=== PATIENT | female | born 1980 | race Caucasian/White ===

== ENCOUNTER 2021-06-14 15:44 | Emergency (ER) | payer MEDICAID, SELFPAY ==
[2021-06-14 15:59] VITALS: BP 142/96; PULSE 74; RESP 18; TEMP 36.7; O2SAT 98
--- NOTE | 2021-06-14 16:45 | DI.RAD_ITS ---
Exam(s) XR FOOT LT COMPLETE EXAM: XR FOOT LT COMPLETE CLINICAL HISTORY: fall/ distal foot pain. TECHNIQUE: 2D digital imaging was performed of the left foot. Three images were obtained. AP, obli que and lateral views were obtained. COMPARISON: No exams were available for comparison FINDINGS: BONES: No acute fracture is present. No bony destructive lesion is seen. Sideplate and screws are see n in the distal fibula. JOINTS: No dislocation present. SOFT TISSUE: Soft tissue swelling about the ankle. IMPRESSION: No acute fracture or dislocation. DATA REPOSITORY: RADIATION DOSE DELIVERED:
--- NOTE | 2021-06-14 16:45 | DI.RAD_ITS ---
Exam(s) XR ANKLE LT COMPLETE EXAM: XR ANKLE LT COMPLETE CLINICAL HISTORY: fall distyal tib pain TECHNIQUE: 2D digital imaging was performed of the left ankle. Three images were obtained. AP, lat eral and oblique views were obtained. COMPARISON: No exams were available for comparison FINDINGS: BONES: No acute fracture is present. No bony destructive lesion is seen. There is a sideplate and scr ews in the distal fibula. JOINTS:The ankle mortise is normally aligned. Old well corticated osseous fragments are seen adjacent to the medial malleolus which may represent old fracture fragments. SOFT TISSUE: Soft tissue swelling around the ankle particularly laterally. IMPRESSION: No evidence of an acute fracture or dislocation. DATA REPOSITORY: RADIATION DOSE DELIVERED:
[2021-06-14 16:50] VITALS: BP 130/78; PULSE 67; RESP 18; TEMP 36.6; O2SAT 97
--- NOTE | 2021-06-14 17:30 | DI.VRAD_ITS ---
PROCEDURE INFORMATION: Exam: XR Left Ankle Exam date and time: 06/14/2021 4:52 PM Age: 40 years old Clinical indication: Other: Fall, distal tib pain TECHNIQUE: Imaging protocol: XR Left ankle. Views: 3 or more views. COMPARISON: No relevant prior studies available. FINDINGS: Bones/joints: Long plate and screws in the distal fibula. Degenerative changes in the medial and lateral malleolus. Old avulsion fracture adjacent to the medial malleolus. There is no evidence of acute fracture.There is no evidence of malalignment or dislocation. Soft tissues: Normal. IMPRESSION: There is no evidence of acute fracture.There is no evidence of malalignment or dislocation. Dictated and Authenticated by: Nikko Khan MD. Ordering:ELISSA Gomez MD
--- NOTE | 2021-06-14 17:30 | DI.VRAD_ITS ---
PROCEDURE INFORMATION: Exam: XR Left Foot Exam date and time: 06/14/2021 4:52 PM Age: 40 years old Clinical indication: Other: Fall distal foot pain TECHNIQUE: Imaging protocol: XR Left foot. Views: 3 or more views. COMPARISON: CR XR ANKLE LT COMPLETE 06/14/2021 5:19 PM FINDINGS: Bones/joints: Plate and screws in the distal fibula. There is no evidence of acute fracture.There is no evidence of malalignment or dislocation. Lucency through the dorsal aspect of the navicular consistent with chronic avulsion fracture Soft tissues: Normal. IMPRESSION: There is no evidence of acute fracture.There is no evidence of malalignment or dislocation. Dictated and Authenticated by: Nikko Khan MD. Ordering:ELISSA Gomez MD
--- NOTE | 2021-06-14 17:34 | ED.GENADUL_ITS ---
Discharge Plan Disposition Patient Disposition: HOME Condition: Stable Discharge Details Clinical Impression: Left ankle sprain Primary Care Provider: Kamar Wilson ED Provider: Jason Abdul Discharge Instructions Instructions: Ankle Sprain (ED), R.I.C.E. Treatment (ED) Additional Instructions: You may continue to take [id number] pain medication as needed and also rest, ice, elevate and keep the brace on. If not improving over the next 1 to 2 weeks please follow-up with orthopedist for reassessment and further treatment as needed. Discharge Data Discharge Date/Time-TO BE ENTERED AT DEPARTURE: 06/14/21 18:08 Medical Decision Making Patient presenting to the emergency department for chief complaint of left ankle injury. She stepped out of a tow truck and missed the step causing her to have an inversion injury of the left ankle. She denies complete fall and states that she caught herself but has significant pain to the left foot and ankle. Patient does report previous injury with OR repair. Patient denies any other injury or trauma. Physical exam shows lateral left ankle tenderness with swelling along with foot tenderness. Plan to do radiological imaging to rule out acute fracture. Review of radiological imaging shows no signs of acute fracture or dislocation within the foot or ankle. Patient placed in a short walking boot and instructed on conservative management along with return and follow-up precautions. After discussion of diagnosis and plan of care patient has no further needs, questions, or concerns and states clear understanding to return to the emergency department for any worsening symptoms. HPI General Mode of arrival: wheelchair . Date/Time Provider Initiated Documentation: 06/14/21 15:46 . Limitations to Documentation: no limitations . Information obtained by: patient . History of Present Illness 40 year old F presents to the emergency department with the chief complaint of left ankle injury, described as moderate, with intensity rated at 8. Quality is described as aching and sharp, and is localized to the left and lower extremity. Patient reports no radiation. Patient started experiencing this hour(s) (1) and it has been constant. Immobilization improves symptom(s), Movement worsens symptoms . Patient notes no other symptoms.. Patient did receive the following treatments prior to arrival, NSAID General Stated Complaint: Orthopedic CRISTIAN: 4 Review of Systems ENT Ears, Nose, Mouth, and Throat: Denies other (denies head trauma) Cardiovascular Cardiovascular: Denies chest pain and Denies syncope Gastrointestinal Gastrointestinal: Denies abdominal pain Musculoskeletal Musculoskeletal: Reports as per HPI, Denies numbness and Denies tingling Integumentary/Breasts Skin/Breast: Denies rash, Denies sores and Denies wounds Neurologic Neurologic: Denies syncope, Denies numbness and Denies tingling PFSH All Active Problems Left ankle sprain (Acute) Social History Smoking/Tobacco Use Status: Never Smoking risk assessment performed?: Yes Alcohol Intake: never Drug use: Never Do you feel safe at home: Yes Do you feel safe in your relationship?: Yes Exam Const General: cooperative, no acute distress and not ill appearing Orientation: alert, awake and oriented x3 Resp Effort & Inspection: normal respiratory effort, able to speak in complete sentences and no respiratory distress Cardio Rate: regular rate Rhythm: regular rhythm Pulses: posterior tibial pulses present and dorsalis pedis present Skin General skin exam: no rashes or lesions noted Neuro General: patient alert, patient awake, patient oriented x3, moves all extremities and no focal motor deficits Sensory Exam: no sensory deficits noted Extrem General: normal exam except as noted Left lower extremity: ankle Details: tenderness Location: of the lateral malleolus, anterolaterally and anteriorly, swelling Details: laterally and abnormal ROM Details: pain with active ROM and pain with passive ROM; no abrasions and foot Details: normal capillary refill and tenderness Location: of the dorsal foot, of the lateral foot and of the mid foot Course Vital Signs Vital signs: Vital Signs Temperature 36.7 C 06/14/21 15:59 Pulse 74 06/14/21 15:59 Respiratory Rate 18 06/14/21 15:59 Blood Pressure 142/96 H 06/14/21 15:59 Pulse Oximetry 98 06/14/21 15:59 Temperature 36.6 C 06/14/21 16:50 Temperature Source Tympanic 06/14/21 15:59 Pulse 67 06/14/21 16:50 Respiratory Rate 18 06/14/21 16:50 Respiratory Effort 06/14/21 16:01 Blood Pressure 130/78 06/14/21 16:50 Blood Pressure Position Supine 06/14/21 15:59 Pulse Oximetry 97 06/14/21 16:50 Oxygen Delivery Method Room Air 06/14/21 16:50 Oxygen Flow Rate 0 06/14/21 16:50 Pain Level 8 06/14/21 15:59 Lab/Test Results Lab/Test Results: POC- Test(urine) Negative
[2021-06-14 17:57] VITALS: BP 130/78; PULSE 67; RESP 18; TEMP 36.6; O2SAT 97
== END 2021-06-14 18:08 | disposition home or self-care (01) ==
PROVIDERS: Emergency Provider Nurse Practitioner Family; PCP Nurse Practitioner Family
DX: S93.492A Sprain of other ligament of left ankle, initial encounter (principal); W10.8XXA Fall (on) (from) other stairs and steps, initial encounter
CPT/HCPCS: 29515; 81025; 99284; 73610; 73630; 99283

== ENCOUNTER 2021-08-29 12:24 | Emergency (ER) | payer MEDICAID, SELFPAY ==
[2021-08-29 12:28] VITALS: BP 140/86; PULSE 80; RESP 16; TEMP 36.3; O2SAT 98
--- NOTE | 2021-08-29 13:05 | ED.GENADUL_ITS ---
Discharge Plan Disposition Patient Disposition: HOME Condition: Stable Discharge Details Clinical Impression: Dental infection Primary Care Provider: Kamar Wilson ED Provider: Columba Hadley Home Meds and New Rx's Prescriptions: New clindamycin HCl 150 mg capsule 450 mg PO TID 7 Days Qty: 63 0RF ketorolac 10 mg tablet 10 mg PO Q8H PRN (Reason: pain) 2 Days Qty: 6 0RF Continued acetaminophen 500 mg Tablet 1,000 mg PO PRN PRN0RF ibuprofen 200 mg Capsule 800 mg PO PRN [id number] Discharge Instructions Instructions: Dental Abscess (ED) Additional Instructions: Your exam appears consistent with a developing dental infection but there is no obvious drainable dental abscess at this time. You are being sent home with a prescription for the antibiotic clindamycin and the pain medication Toradol to take as needed and directed for pain. Do not take NSAIDs while you are taking Toradol. You can continue to take Tylenol as needed and directed for pain. Call your dentist tomorrow to schedule follow-up appointment for reevaluation. Return immediately to the emergency department if you develop any worsening or new concerning symptoms. Discharge Data Discharge Date/Time-TO BE ENTERED AT DEPARTURE: 08/29/21 13:40 Discharge Physician: Columba Hadley Medical Decision Making 41-year-old female presents with left lower dental pain for the past few days. Vitals within normal limits. Patient appears comfortable and nontoxic. Speaki ng in full sentences. No drooling, trismus or submandibular swelling. She has extensive dental caries and multiple necrotic teeth. Tooth where there is area of pain and swelling is significantly decayed there is no obvious abscess. She has minimal left-sided facial swelling. Patient states she has a history of wheezing with penicillin or erythromycin. She states she has not taken clindamycin in the past. She was given a dose of clindamycin here. 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 She was given 2 days of Toradol but advised to not take along with NSAIDs. Advised to call her dentist tomorrow for follow-up. Usual and customary return precautions given prior to discharge. Medical Records Medical records reviewed: Yes I reviewed the patient's medical records. HPI General Mode of arrival: ambulatory . Date/Time Provider Initiated Documentation: 08/29/21 12:44 . Limitations to Documentation: no limitations . Information obtained by: patient . HPI Narrative: Patient is a 41-year-old female who presents with left lower dental pain for the past few days. Patient states she has areas of dental decay for which she has seen her dentist recently. She denies any new specific injury. She states she had a Keflex leftover and took 1 dose today. She states she noted some pain in the left side of her throat with swallowing. She denies any fever. Related Data Home Medications Medication Instructions Recorded Confirmed acetaminophen 500 mg tablet 1,000 mg PO PRN PRN 08/29/21 08/29/21 clindamycin HCl 150 mg capsule 450 mg PO TID 7 Days #63 cap 08/29/21 ibuprofen 200 mg capsule 800 mg PO PRN PRN 08/29/21 08/29/21 ketorolac 10 mg tablet 10 mg PO Q8H PRN 2 Days #6 tab 08/29/21 Previous Rx's Medication Instructions Recorded clindamycin HCl 150 mg capsule 450 mg PO TID 7 Days #63 cap 08/29/21 ketorolac 10 mg tablet 10 mg PO Q8H PRN 2 Days #6 tab 08/29/21 Allergies Allergy/AdvReac Type Severity Reaction Status Date / Time amoxicillin Allergy Unverified 08/29/21 12:32 erythromycin base Allergy Unverified 08/29/21 12:32 Penicillins Allergy Unverified 08/29/21 12:33 Sulfa (Sulfonamide Allergy Unverified 08/29/21 12:33 Antibiotics) General Stated Complaint: DentalOral CRISTIAN: 4 Review of Systems All systems reviewed & are unremarkable except as noted in HPI and below Constitutional Constitutional: Reports as per HPI, Denies chills and Denies fever(s) Eyes Eyes: Denies blurry vision ENT Ears, Nose, Mouth, and Throat: Reports dental pain, Denies dizziness, Denies sore throat and Denies throat swelling Cardiovascular Cardiovascular: Denies chest pain and Denies dyspnea Respiratory Respiratory: Denies cough and Denies dyspnea Gastrointestinal Gastrointestinal: Denies abdominal pain, Denies diarrhea and Denies vomiting Genitourinary Genitourinary: Denies hematuria and Denies dysuria Musculoskeletal Musculoskeletal: Denies back pain and Denies numbness Integumentary/Breasts Skin/Breast: Denies lesions and Denies rash Neurologic Neurologic: Denies dizziness, Denies localized weakness and Denies numbness Allergic/Immunologic Allergic/Immunologic: Denies throat swelling PFSH All Active Problems (Updated 08/29/21 @ 14:54 by Columba Hadley DO) Dental infection (Acute) Medical History (Updated 08/29/21 @ 14:54 by Columba Hadley DO) No significant past medical history Surgical History (Updated 08/29/21 @ 14:54 by Columba Hadley DO) No significant past surgical history Social History Smoking/Tobacco Use Status: Never Smoking risk assessment performed?: Yes Alcohol Intake: never Drug use: Never Do you feel safe at home: Yes Do you feel safe in your relationship?: Yes Exam Const General: cooperative, healthy appearing and no acute distress Orientation: alert, awake and oriented x3 HENMT Head: normal to inspection Ears: hearing grossly normal bilaterally, external ears normal and TM's normal bilaterally General nose exam: external nose normal Face images: 1. Very minimal swelling noted to left lateral facial cheek/mandible. There is no erythema, ecchymosis, rash, lesions or crepitus. Mouth: oral mucosae normal, no drooling and no trismus Teeth image: 1. Most of tooth missing. Base of tooth remains and black and brown in color. There is surrounding mucosal edema but no obvious area of fluctuance, drainage or bleeding. Throat: posterior oropharynx normal Eyes General: appearance normal, both eyes and all related structures Neck Neck: normal visual inspection, no lymphadenopathy, no meningeal signs, trachea midline, supple, no anterior neck swelling and No submandibular swelling Resp Effort & Inspection: normal respiratory effort and able to speak in complete sentences Cardio Rate: regular rate Skin General skin exam: no rashes or lesions noted Neuro General: patient alert, patient awake and patient oriented x3 Motor: muscle tone normal throughout Extrem General: normal to inspection and full ROM Psych Appearance: grossly normal Affect: normal affect Course Vital Signs Vital signs: Vital Signs Temperature 97.3 F L 08/29/21 12:28 Pulse 80 08/29/21 12:28 Respiratory Rate 16 08/29/21 12:28 Blood Pressure 140/86 08/29/21 12:28 Pulse Oximetry 98 08/29/21 12:28 Temperature 97.3 F L 08/29/21 12:28 Temperature Source Temporal Artery Scan 08/29/21 12:28 Pulse 80 08/29/21 12:28 Respiratory Rate 16 08/29/21 12:28 Respiratory Effort 08/29/21 12:38 Blood Pressure 140/86 08/29/21 12:28 Blood Pressure Position Sitting 08/29/21 12:28 Pulse Oximetry 98 08/29/21 12:28 Oxygen Delivery Method Room Air 08/29/21 12:28 Oxygen Flow Rate 0 08/29/21 12:28 Pain Level 7 08/29/21 12:28
[2021-08-29] MEDS: Clindamycin 150 MG CAP 450 MG PO (13:37)
== END 2021-08-29 13:40 | disposition home or self-care (01) ==
PROVIDERS: Emergency Provider Physician Assistant; PCP Nurse Practitioner Family
DX: K04.7 Periapical abscess without sinus (principal)
CPT/HCPCS: 81025; 99283

== ENCOUNTER 2022-04-11 22:03 | Emergency (ER) | payer MEDICAID, SELFPAY ==
[2022-04-11 22:10] VITALS: BP 125/91; PULSE 95; RESP 20; TEMP 37.1; O2SAT 98
--- NOTE | 2022-04-11 22:15 | RT.EKG_ITS ---
APPROVED REPORT Exam: Resting ECG Reason for Exam: chest pain Patient Location: E HR:80 bpm ECG Measurements Heart Rate 80 AXIS RI 137 P 13 QRSd 83 QRS 9 QT 378 T 46 QTc 437 Conclusion Sinus rhythm...normal P axis, V-rate 60- 99 Nonspecific T abnormalities, anterior leads...T <-0.10mV, V2-V4 Physician: no stemi, inverted t wave in V3
--- NOTE | 2022-04-11 23:15 | DI.CT_ITS ---
Exam(s) CT THORAX ABDOMEN CTA EXAM: CT THORAX ABDOMEN CTA CLINICAL HISTORY: back/scapula pain, ruq pain, eval dissection/GB. TECHNIQUE: Imaging Protocol: Axial CT angiography was performed with multi-slice acquisition and m ulti-planar and/or 3D reconstructions. CONTRAST MATERIAL: Intravenous: Omnipaque 350 contrast volume:100 mL Oral: No COMPARISON: No exams were available for comparison FINDINGS: CHEST: Tracheobronchial tree: Patent where visualized. Pulmonary parenchyma: No consolidation or dominant measurable mass. No architectural distortion. Ther e is a calcified granuloma in the right upper lobe. Pulmonary Arteries: No evidence of filling defect to suggest pulmonary emboli. Mediastinum and Stephie: No dominant adenopathy or fluid collection. There is a small hiatal hernia. Th e esophagus is otherwise unremarkable. Visualized thyroid: Unremarkable. Pleura: No effusion or pneumothorax. Heart: The heart is not dilated. No coronary artery calcifications are seen. No pericardial effusion. Aorta: Thoracic aorta non-dilated. No evidence of dissection or aneurysm. Soft Tissues: Unremarkable. Bones: Within normal limits for the patient's age. ABDOMEN: Abdomen: Celiac axis/mesenteric arteries: No evidence of occlusion or significant stenosis. Renal Arteries: No evidence of occlusion or significant stenosis. There is a single renal artery per fusing each kidney. Aorta: No evidence of occlusion or significant stenosis. No aneurysm or dissection. Proximal Common iliac Arteries: No evidence of occlusion or significant stenosis. ABDOMEN: Liver: There does appear to be decreased attenuation of the liver suggesting fatty infiltration. No measurable mass. The liver measures 20 cm long. Gallbladder and Biliary Tract: No radiodense calculus or dilation. Pancreas: Normal density, no abnormal calcifications or inflammatory process. Spleen: Normal. Adrenals: No masses seen. Kidneys: Normal size, contour and axis. No radiodense stones or obstructive uropathy. No masses seen. Mild bilateral renal cortical scarring. Bowel: No obstruction or bowel wall thickening. Peritoneal Cavity: No ascites, collection or mesenteric inflammatory response. No free air. Lymph Nodes: Within normal limits. Bones: Within normal limits for the patient's age. Soft Tissues: Unremarkable. IMPRESSION: 1. No evidence of pulmonary embolism, thoracic aortic dissection or aneurysm. 2. No acute pulmonary process. 3. No acute abdominal process. Unremarkable gallbladder. No biliary ductal dilatation. RADIATION DOSE DELIVERED: 849.87mGy.cm Total DLP DATA REPOSITORY: All CT scans at this facility are submitted to the National Radiology Data Registry (NRDR) Dose Index Registry (DIR) with the [employer] (A[employer]). RADIATION OPTIMIZATION: All CT scans at this facility use at least one of these dose optimization te chniques: automated exposure control; mA and/or kV adjustment per patient size (includes targeted exa ms where dose is matched to clinical indication); or iterative reconstruction.
--- NOTE | 2022-04-11 23:57 | W.ED.GENAD ---
Discharge Plan Disposition Patient Disposition: Home Condition: Good Discharge Details Clinical Impression: Discomfort of back Primary Care Provider: Kamar Wilson ED Provider: Freeman Doyle Home Meds and New Rx's Prescriptions: New pantoprazole [Protonix] 40 mg tablet,delayed release (DR/EC) 40 mg PO DAILY Qty: 60 0RF No Action acetaminophen 500 mg Tablet 1,000 mg PO PRN PRN ibuprofen 200 mg Capsule 800 mg PO PRN PRN Discharge Instructions Instructions: Biliary Colic (ED), Esophagitis (ED) Additional Instructions: At this time your work-up has returned reassuring. There is no evidence of cardiac disease, significant lung or chest abnormality. I am concerned that you may have irritation in your esophagus or a spasm of your gallbladder causing the pain. Please avoid any spicy foods, greasy foods, or fatty foods. Please take the Protonix as directed. It is been sent to your pharmacy on file. Please follow-up closely with your primary care provider for reassessment. If you notice any worsening of your symptoms, or any new symptoms such as vomiting, diarrhea, fever, chills, shortness of breath, chest pain, numbness, weakness, or fainting , please return immediately to the emergency department for reevaluation. Please follow up with your primary care provider as soon as possible for reassessment and reevaluation. As always, it was a pleasure participating in your medical care today. Referrals: Kamar Wilson [Primary Care Provider] - Discharge Data Discharge Date/Time-TO BE ENTERED AT DEPARTURE: 04/12/22 01:58 Medical Decision Making 41-year-old female with no significant past medical history aside for hypertension who presents today for evaluation of back pain. Patient states that for the last 4 weeks she has had a mild pain in her upper back between her shoulder blades and a deep-seated area. Pain seems to be worse at night before she goes to bed but not before she lays down. No exertional component. She does admit to some burning sensation in her chest occasionally but feels that this is different but potentially related. She denies any vomiting or diarrhea currently but did have a few episodes over the last few days. She denies any tearing or ripping sensation in her chest. No history for herself or her family of MT/aneurysm/dissection/PE. She denies any food related component. She does admit to some mild epigastric discomfort and right upper quadrant discomfort as well. No other complaints at this time. She has taken Tylenol and Motrin over the last month but this has not changed her symptoms. Physical exam demonstrates wide right upper quadrant tenderness, no guarding or rebound. No reproducible pain for the back. EKG shows no STEMI. Symptoms inconsistent with ACS, however differential does include cholecystitis, biliary colic, osseous or thoracic vascular abnormality. We will evaluate for these concerning etiologies, monitor closely and reassess. 1:41 AM Laboratory work-up is returned, no significant abnormalities. Electrolytes stable, renal function good, troponin and lipase normal. EKG normal. Patient feels well and would like to go home. Review of the CT scan does seem to show a small versus slightly contracted gallbladder. Symptoms may certainly be related to potential biliary colic. Recommend avoidance of spicy, fatty, greasy foods. Patient symptoms may be related to mild esophagitis as well. Will recommend antacid medication for home use, as well as close PCP follow-up for potential discussion of EGD on an outpatient basis. Patient stable for discharge. Symptoms inconsistent with PE, dissection, tumor or mass. Discussed reflux which to return. I have extensively reviewed the treatment plan and discharge instructions with the patient and their family. I have addressed all patient concerns at this time. The patient and family was made aware of what symptoms to monitor for that would warrant a return to the emergency department. Discussed the plan with the patient and family, they demonstrate verbal understanding and agreement with our assessment and plan at this time. The documentation in this chart was dictated using [employer] dictation software. Please excuse any dictation errors. FINDINGS: VASCULATURE: Pulmonary arteries: Mildly enlarged main pulmonary artery No pulmonary emboli. Aorta: No aortic aneurysm. No aortic dissection. Celiac trunk and mesenteric arteries: No occlusion or significant stenosis. Renal arteries: No occlusion or significant stenosis. CHEST: Lungs: Calcified granuloma right upper lobe No consolidation. No masses. Pleural spaces: Unremarkable. No pneumothorax. No pleural effusion. Heart: Unremarkable. No cardiomegaly. No pericardial effusion. Small hiatal hernia ABDOMEN AND PELVIS: Liver: No mass. Fatty infiltration and mild hepatomegaly Gallbladder and bile ducts: Unremarkable. No calcified stones. No ductal dilation. Pancreas: Unremarkable. No mass. No ductal dilation. Spleen: Unremarkable. No splenomegaly. Adrenal glands: Unremarkable. No mass. Kidneys and ureters: Unremarkable. No solid mass. No hydronephrosis. Stomach and bowel: Unremarkable. No obstruction. No mucosal thickening. Intraperitoneal space: Unremarkable. No free air. No significant fluid collection. Lymph nodes: Unremarkable. No enlarged lymph nodes. Bones/joints: Unremarkable. No acute fracture. Soft tissues: Unremarkable. IMPRESSION: No evidence for pulmonary emboli or aortic dissection Enlarged main pulmonary artery which may be related to pulmonary arterial hypertension versus pulmonic stenosis Thank you for allowing us to participate in the care of your patient. Dictated and Authenticated by: Andrew Santizo MD 04/12/2022 1:13 AM Eastern Time ([place] & [place]) Sign Out No HPI General Date/Time Provider Initiated Documentation: 04/11/22 23:17. HPI Narrative: 41-year-old female with no significant past medical history aside for hypertension who presents today for evaluation of back pain. Patient states that for the last 4 weeks she has had a mild pain in her upper back between her shoulder blades and a deep-seated area. Pain seems to be worse at night before she goes to bed but not before she lays down. No exertional component. She does admit to some burning sensation in her chest occasionally but feels that this is different but potentially related. She denies any vomiting or diarrhea currently but did have a few episodes over the last few days. She denies any tearing or ripping sensation in her chest. No history for herself or her family of MT/aneurysm/dissection/PE. She denies any food related component. She does admit to some mild epigastric discomfort and right upper quadrant discomfort as well. No other complaints at this time. She has taken Tylenol and Motrin over the last month but this has not changed her symptoms. Related Data Home Medications Medication Instructions Recorded Confirmed acetaminophen 500 mg tablet 1,000 mg PO PRN PRN 08/29/21 04/11/22 ibuprofen 200 mg capsule 800 mg PO PRN PRN 08/29/21 04/11/22 pantoprazole 40 mg tablet,delayed 40 mg PO DAILY #60 tabs 04/12/22 release (Protonix) Previous Rx's Medication Instructions Recorded pantoprazole 40 mg tablet,delayed 40 mg PO DAILY #60 tabs 04/12/22 release (Protonix) Allergies Allergy/AdvReac Type Severity Reaction Status Date / Time amoxicillin Allergy Unverified 04/11/22 22:19 erythromycin base Allergy Unverified 04/11/22 22:19 Penicillins Allergy Unverified 04/11/22 22:19 Sulfa (Sulfonamide Allergy Unverified 04/11/22 22:19 Antibiotics) General Stated Complaint: Nk/Back Pain CRISTIAN: 4 Review of Systems All systems reviewed & are unremarkable except as noted in HPI and below PFSH All Active Problems (Updated 04/12/22 @ 01:45 by Freeman Dyole DO) Discomfort of back (Acute) Medical History No significant past medical history Surgical History No significant past surgical history Social History Smoking/Tobacco Use Status: Never Smoking risk assessment performed?: Yes Alcohol Intake: never Drug use: Never Do you feel safe at home: Yes Do you feel safe in your relationship?: Yes Exam Narrative Exam Narrative: 1.Const: Well-nourished, Well-developed, appearing stated age 2.Eyes: PERRL, no conjunctival injection, and symmetrical lids. 3.ENT: Atraumatic external nose and ears. Moist MM. Neck: Symmetric, trachea midline, No thyromegaly. 4.CVS: +S1/S2, No murmurs or gallops. Peripheral pulses 2+ and equal in all extremities. Brisk capillary refill in all extremities. 5.RESP: Unlabored respiratory effort. Clear to auscultation bilaterally. No wheezes rales or rhonchi 6.GI: Soft, nondistended, no guarding or rebound. Mild right upper quadrant tenderness on palpation. No pain to McBurney's point, negative Arboleda sign but certainly has present tenderness in that area. 7.MSK: Normocephalic/Atraumatic, Extremities w/o deformity or ttp No cyanosis or clubbing, Normal movement of all extremities, no reproducible spinal tenderness. No reproducible back tenderness. The focality of the pain appears to be around T3, however it is deep satted, and not made worse with palpation or midline pushing. 8.Skin: Warm, Dry. No rashes or lesions. 9.Neuro: software writer II-XII grossly intact. Sensation grossly intact, no focal neurologic deficits. 10.Psych: (AAO) x3. Appropriate mood and affect Course Vital Signs Vital signs: Vital Signs Temperature 37.1 C 04/11/22 22:10 Pulse 95 H 04/11/22 22:10 Respiratory Rate 20 04/11/22 22:10 Blood Pressure 125/91 H 04/11/22 22:10 Pulse Oximetry 98 04/11/22 22:10 Temperature 37.1 C 04/11/22 22:10 Temperature Source Temporal Artery Scan 04/11/22 22:10 Pulse 95 H 04/11/22 22:10 Respiratory Rate 20 04/11/22 22:10 Respiratory Effort 04/11/22 22:27 Blood Pressure 125/91 H 04/11/22 22:10 Blood Pressure Position Sitting 04/11/22 22:10 Pulse Oximetry 98 04/11/22 22:10 Oxygen Delivery Method Room Air 04/11/22 22:10 Oxygen Flow Rate 0 04/11/22 22:10 Pain Level 6 04/11/22 22:10
[2022-04-12] LABS: Abs Immature Grans 0.06 10^3/uL (0.0-0.06); Absolute Basophil Count 0.05 10^3/uL (0.0-0.2); Absolute Neutrophil Count 7.55 10^3/uL (1.2-6.7); Basophils % 0.4; Eosinophils % 5.9; HCT 36.3 % (36.0-46.0); HGB 11.1 g/dL (11.2-15.7); Immature Grans % 0.5; Lymphocytes % 23.6; MCH 23.4 pg (27.0-33.0); MCHC 30.6 % (32.0-36.0); MCV 76 fL (80-95); MPV 11.3 fL (8.0-11.0); Monocytes % 5.9; Neutrophils % 63.7; Platelet Count 293 10^3/uL (130-400); RBC 4.75 10^6/uL (3.93-5.22); RDW-SD 47.2 fL; WBC 11.85 10^3/uL (4.4-10.8)
[2022-04-12] MEDS: Omnipaque 350 MG/ML 100 ML BTL IJ (00:01)
[2022-04-12] MEDS: Ketorolac 15 MG/ML VIAL IVP (00:02)
[2022-04-12 00:18] LABS: ALT 16 U/L (14-59); AST 19 U/L (15-37); Albumin 3.3 g/dL (3.4-5.0); Alkaline Phosphatase 110 U/L (46-116); Anion Gap 8.8 mmol/L (3-11); BUN 20 mg/dL (7-18); Bilirubin, Total 0.3 mg/dL (0.2-1.0); CO2 27.2 mmol/L (21.0-32.0); Calcium 9.4 mg/dL (8.5-10.1); Chloride 103 mmol/L (98-107); Estimated GFR 72.13 (mL/min/1.73m2); Glucose 100 mg/dL (74-106); Lipase 119 U/L (73-393); Potassium 4.2 mmol/L (3.5-5.1); Sodium 139 mmol/L (136-145); Troponin I < 50 ng/L (<or=60)
[2022-04-12] MEDS: Normal Saline Flush 10 ML SYR IVP (00:25)
[2022-04-12] MEDS: Normal Saline - Diluent 50 ML VIAL IJ (00:25)
--- NOTE | 2022-04-12 01:14 | DI.VRAD_ITS ---
PROCEDURE INFORMATION: Exam: CTA Chest With Contrast CTA Abdomen With Contrast Exam date and time: 04/12/2022 12:11 AM Age: 41 years old Clinical indication: Abdominal pain; Localized; Right upper quadrant (ruq); Patient HX: Back, scapula pain, ruq pain, eval dissection, gb TECHNIQUE: Imaging protocol: Computed tomographic angiography of the chest with contrast. Computed tomographic angiography of the abdomen with contrast. 3D rendering (Not supervised by radiologist): MIP and/or 3D reconstructed images were created by the technologist. Radiation optimization: All CT scans at this facility use at least one of these dose optimization techniques: automated exposure control; mA and/or kV adjustment per patient size (includes targeted exams where dose is matched to clinical indication); or iterative reconstruction. Contrast material: OMNIPAQUE 350; Contrast volume: 100 ml; Contrast route: INTRAVENOUS (IV); COMPARISON: No relevant prior studies available. FINDINGS: VASCULATURE: Pulmonary arteries: Mildly enlarged main pulmonary artery No pulmonary emboli. Aorta: No aortic aneurysm. No aortic dissection. Celiac trunk and mesenteric arteries: No occlusion or significant stenosis. Renal arteries: No occlusion or significant stenosis. CHEST: Lungs: Calcified granuloma right upper lobe No consolidation. No masses. Pleural spaces: Unremarkable. No pneumothorax. No pleural effusion. Heart: Unremarkable. No cardiomegaly. No pericardial effusion. Small hiatal hernia ABDOMEN AND PELVIS: Liver: No mass. Fatty infiltration and mild hepatomegaly Gallbladder and bile ducts: Unremarkable. No calcified stones. No ductal dilation. Pancreas: Unremarkable. No mass. No ductal dilation. Spleen: Unremarkable. No splenomegaly. Adrenal glands: Unremarkable. No mass. Kidneys and ureters: Unremarkable. No solid mass. No hydronephrosis. Stomach and bowel: Unremarkable. No obstruction. No mucosal thickening. Intraperitoneal space: Unremarkable. No free air. No significant fluid collection. Lymph nodes: Unremarkable. No enlarged lymph nodes. Bones/joints: Unremarkable. No acute fracture. Soft tissues: Unremarkable. IMPRESSION: No evidence for pulmonary emboli or aortic dissection Enlarged main pulmonary artery which may be related to pulmonary arterial hypertension versus pulmonic stenosis Dictated and Authenticated by: Andrew Santizo MD. Ordering:JEANINE Millard MD
== END 2022-04-12 01:58 | disposition home or self-care (01) ==
PROVIDERS: Emergency Provider Student in an Organized Health Care Education/Training Program; PCP Nurse Practitioner Family
DX: M54.6 Pain in thoracic spine; I10 Essential (primary) hypertension; R10.13 Epigastric pain; R10.11 Right upper quadrant pain
CPT/HCPCS: 71275; 74175; 80053; 83690; 93005; 96374; 99285; 84484; 85025; 93010; J1885; J3490

== ENCOUNTER 2022-06-05 15:18 | Emergency (ER) | payer MEDICAID, SELFPAY ==
[2022-06-05] VITALS (25 sets, daily range): BP systolic 107–140; BP diastolic 55–82; PULSE 52–73; RESP 15–26; TEMP 37.1; O2SAT 92–100
--- NOTE | 2022-06-05 15:19 | RT.EKG_ITS ---
APPROVED REPORT Exam: Resting ECG Reason for Exam: chest pain Patient Location: E HR:70 bpm ECG Measurements Heart Rate 70 AXIS SD 148 P 34 QRSd 86 QRS 12 QT 437 T 30 QTc 470 Conclusion Sinus rhythm...normal P axis, V-rate 60- 99
--- NOTE | 2022-06-05 15:46 | ED.GENADUL_ITS ---
Discharge Plan Disposition Patient Disposition: Home Condition: Improving Discharge Details Clinical Impression: Subacromial impingement of left shoulder Primary Care Provider: Kamar Wilson ED Provider: Dash Park Home Meds and New Rx's Prescriptions: New sucralfate [Carafate] 1 gram tablet 1 g PO BID 14 Days Qty: 28 0RF Continued acetaminophen 500 mg Tablet 1,000 mg PO PRN PRN ibuprofen 200 mg Capsule 800 mg PO PRN PRN pantoprazole [Protonix] 40 mg tablet,delayed release (DR/EC) 40 mg PO DAILY Qty: 60 0RF Discharge Instructions Additional Instructions: Wear sling as needed for comfort at the end of the day and evening times. May use ice 20 to 30 minutes at a time to reduce discomfort. You have been referred to orthopedics for follow-up. The office number is [phone]. Tylenol if needed for pain. Please add Carafate to your daily medication routine for the next 2 weeks time. Return to the ER should he develop increasing pain, any fever, rash, difficulty breathing, or any other acute concerns. Medical Decision Making 41-year-old female presents complaining of intermittent episodes of chest pain/left shoulder pain since yesterday. She has previously had biliary colic and states this presented with back pain. She states that she will also endorse back pain today that is similar to the previous episodes of biliary colic. The anterior pain seems to radiate to the left arm, it is reproducible with palpation. She denies recent illness. She has had some loose stool and nausea. On exam her vital signs are normal. She has reproducible discomfort of the left anterior chest wall, bilateral upper quadrants of her abdomen. The patient's differential diagnosis is quite broad and would include recurrent biliary colic, pancreatitis, gastritis, ACS, must exclude pneumonitis, or pulmonary embolism, also consider shoulder arthritis or impingement syndrome. Patient had IV access established, was placed on a vehicle monitor technician, referred for laboratory testing, x-ray and EKG. Laboratories are reassuring. White blood cell count 11, hematocrit 34, platelets 323. D-dimer negative at 142. Electrolytes within normal limits. BUN is 16 and creatinine 1.4. AST 13, ALT 17, total bili 0.5. Lipase 96. Troponin negative. Chest x-ray unremarkable. Shoulder x-ray reveals subacromial spurring which may represent a source of impingement. Discussed with her that I feel this is likely the source of her discomfort. We discussed warning signs to seek reevaluation. No evidence of an acute abdominal process, although she may have some persistent GERD and I will add Carafate to her regimen for the next 2 weeks. I do not feel further risk stratification of coronary artery disease is indicated at this time. Will offer her a sling for comfort, will refer to orthopedics for follow-up. She is stable and improving. HPI General Mode of arrival: ambulatory . Date/Time Provider Initiated Documentation: 06/05/22 15:19 . Limitations to Documentation: no limitations . Information obtained by: patient and family . History of Present Illness 41 year old F presents to the emergency department with the chief complaint of Chest Pain, described as moderate, Quality is described as dull, and is localized to the chest and left. Patient extremity. Patient started experiencing this hour(s) and it has been intermittent. No relieving factors improve symptom(s), No exacerbating factors reported . Patient notes chest pain, loss of appetite and shortness of breath; denies fever/chills and syncope. Patient did receive the following treatments prior to arrival, none Related Data Home Medications Medication Instructions Recorded Confirmed acetaminophen 500 mg tablet 1,000 mg PO PRN PRN 08/29/21 06/05/22 ibuprofen 200 mg capsule 800 mg PO PRN PRN 08/29/21 06/05/22 pantoprazole 40 mg tablet,delayed 40 mg PO DAILY #60 tabs 04/12/22 06/05/22 release (Protonix) sucralfate 1 gram tablet (Carafate) 1 g PO BID 2 weeks #28 tabs 06/05/22 Previous Rx's Medication Instructions Recorded pantoprazole 40 mg tablet,delayed 40 mg PO DAILY #60 tabs 04/12/22 release (Protonix) sucralfate 1 gram tablet (Carafate) 1 g PO BID 2 weeks #28 tabs 06/05/22 Allergies Allergy/AdvReac Type Severity Reaction Status Date / Time amoxicillin Allergy Unverified 06/05/22 15:26 erythromycin base Allergy Unverified 06/05/22 15:26 Penicillins Allergy Unverified 06/05/22 15:26 Sulfa (Sulfonamide Allergy Unverified 06/05/22 15:26 Antibiotics) General Stated Complaint: Chest Pain CRISTIAN: 2 Review of Systems Narrative: Denies fever chills or cough. Nauseated. No emesis. Has had some loose stool. Pain in her back. States this feels similar to biliary colic. No leg pain or swelling. No prolonged immobilization. 8 systems were reviewed and otherwise negative PFSH All Active Problems (Updated 06/05/22 @ 18:14 by Dash Park MD) Subacromial impingement of left shoulder (Acute) Medical History No significant past medical history Surgical History No significant past surgical history Social History Smoking/Tobacco Use Status: Never Smoking risk assessment performed?: Yes Alcohol Intake: never Drug use: Never Substance use type: does not use Do you feel safe at home: Yes Do you feel safe in your relationship?: Yes Exam Narrative Exam Narrative: GEN: awake, alert, oriented 3. Pleasant, well groomed, interactive. HEAD: Normocephalic, atraumatic ENT: Mucous membranes moist, oropharynx unremarkable, External ear exam unremarkable EYES: PERRL, EOMI NECK: Full ROM, no MIGDALIA, no menigismus CHEST/RESP: Left anterior chest/pectoral muscle tender to palpation, no rash, clear to auscultation bilateral, no wheeze/rhonchi/rales CARDIOVASCULAR: RRR, no murmur, rub miguelangel. 2+ Rad pulse bilateral ABDOMEN: Soft, tender in the bilateral upper quadrants without rebound or guarding, no mass. +Bowel sounds EXT: Full ROM, no edema, no rash Neuro: Grossly normal neurologic exam, conversant, interactive. Psych: Speech fluent, thoughts congruent, affect normal Course Vital Signs Vital signs: Vital Signs Temperature 37.1 C 06/05/22 15:20 Pulse 73 06/05/22 15:20 Respiratory Rate 18 06/05/22 15:20 Blood Pressure 137/76 06/05/22 15:20 Temperature 37.1 C 06/05/22 15:20 Temperature Source Skin 06/05/22 15:20 Pulse 73 06/05/22 15:20 Respiratory Rate 18 06/05/22 15:20 Respiratory Effort 06/05/22 15:27 Blood Pressure 137/76 06/05/22 15:20 Blood Pressure Position Sitting 06/05/22 15:20 Oxygen Delivery Method Room Air 06/05/22 15:20 Oxygen Flow Rate 0 06/05/22 15:20 Pain Level 7 06/05/22 15:20
[2022-06-05] MEDS: Pantoprazole 40 MG VIAL IVP (16:34)
[2022-06-05 16:42] LABS: Abs Immature Grans 0.04 10^3/uL (0.0-0.06); Absolute Basophil Count 0.06 10^3/uL (0.0-0.2); Absolute Eosinophil Count 0.61 10^3/uL (0.0-0.7); Absolute Lymphocyte Count 2.09 10^3/uL (1.2-3.4); Absolute Monocyte Count 0.63 10^3/uL (0.1-0.8); Basophils % 0.5; Eosinophils % 5.5; HCT 34.3 % (36.0-46.0); HGB 10.2 g/dL (11.2-15.7); Immature Grans % 0.4; Lymphocytes % 18.8; MCH 23.1 pg (27.0-33.0); MCHC 29.7 % (32.0-36.0); MCV 78 fL (80-95); MPV 11.3 fL (8.0-11.0); Monocytes % 5.7; Neutrophils % 69.1; Platelet Count 323 10^3/uL (130-400); RBC 4.41 10^6/uL (3.93-5.22); RDW 15.9 % (11.7-14.6); RDW-SD 45.3 fL; WBC 11.14 10^3/uL (4.4-10.8)
[2022-06-05 17:00] LABS: ALT 17 U/L (14-59); AST 13 U/L (15-37); Albumin 3.4 g/dL (3.4-5.0); Alkaline Phosphatase 104 U/L (46-116); Anion Gap 8.9 mmol/L (3-11); BUN 16 mg/dL (7-18); Bilirubin, Total 0.5 mg/dL (0.2-1.0); CO2 25.1 mmol/L (21.0-32.0); CREATININE 1.4 mg/dL (0.55-1.02); Calcium 9.2 mg/dL (8.5-10.1); Chloride 108 mmol/L (98-107); Estimated GFR 48.17 (mL/min/1.73m2); Glucose 95 mg/dL (74-106); Magnesium 1.9 mg/dL (1.8-2.4); Potassium 4.6 mmol/L (3.5-5.1); Sodium 142 mmol/L (136-145); Total Protein 7.2 g/dL (6.4-8.2); Troponin I < 50 ng/L (<or=60)
[2022-06-05 17:07] LABS: Lipase 96 U/L (73-393)
[2022-06-05] MEDS: Ketorolac 15 MG/ML VIAL IVP (17:16)
[2022-06-05 17:25] LABS: D-Dimer 316 ng/mlFEU (<500)
--- NOTE | 2022-06-05 17:30 | DI.RAD_ITS ---
Exam(s) XR SHOULDER LT COMPLETE 2+V EXAM: XR SHOULDER LT COMPLETE 2+V CLINICAL HISTORY: L shoulder pain. TECHNIQUE: 2D digital imaging was performed of the left shoulder. Five images were obtained. AP, G rashey, Y-view and axillary views were obtained. COMPARISON: No exams were available for comparison FINDINGS: BONES: No acute fracture is present. No bony destructive lesion is seen. There is a bony spur at the inferior aspect of the acromion which may cause impingement on the rotator cuff. JOINTS: No dislocation present. SOFT TISSUE: Normal. IMPRESSION: 1. No acute fracture or dislocation. 2. Bony spur at the inferior surface of the acromion which may cause impingement on the rotator cuff. There is concern for rotator cuff tear MRI may be considered for further evaluation. DATA REPOSITORY: RADIATION DOSE DELIVERED:
--- NOTE | 2022-06-05 17:30 | DI.RAD_ITS ---
Exam(s) XR CHEST 2V PA LATERAL EXAM: XR CHEST 2V PA LATERAL CLINICAL HISTORY: CHest and L shoulder pain TECHNIQUE: 2D digital imaging was performed of the chest. Two images were obtained. PA and lateral views were obtained. COMPARISON: No exams were available for comparison FINDINGS: MEDIASTINUM: Normal. HEART: Normal. PULMONARY VASCULATURE: Normal. LUNGS: Clear. PLEURAL SPACE: No pleural effusion or pneumothorax. BONE:Within normal limits for the patient's age. OTHER FINDINGS:Normal. IMPRESSION: No acute pulmonary findings. DATA REPOSITORY: RADIATION DOSE DELIVERED:
--- NOTE | 2022-06-05 17:58 | DI.VRAD_ITS ---
PROCEDURE INFORMATION: Exam: XR Chest Exam date and time: 06/05/2022 5:47 PM Age: 41 years old Clinical indication: Pain; Left-sided TECHNIQUE: Imaging protocol: Radiologic exam of the chest. Views: 2 views. COMPARISON: CT THORAX ABDOMEN CTA 04/12/2022 12:11 AM FINDINGS: Lungs: Unremarkable. No consolidation. Pleural spaces: Unremarkable. No pleural effusion. No pneumothorax. Heart/Mediastinum: Unremarkable. No cardiomegaly. Bones/joints: Unremarkable. IMPRESSION: No acute findings. Dictated and Authenticated by: Miller Correa MD. Ordering:KADEN Bowling MD
--- NOTE | 2022-06-05 17:59 | DI.VRAD_ITS ---
PROCEDURE INFORMATION: Exam: XR Left Shoulder Exam date and time: 06/05/2022 5:49 PM Age: 41 years old Clinical indication: Pain; Shoulder; Left TECHNIQUE: Imaging protocol: Radiologic exam of the Left shoulder. Views: 2 or more views. COMPARISON: CR XR CHEST 2V PA LATERAL 06/05/2022 5:47 PM FINDINGS: Bones/joints: Subacromial bony spurs. This could be a source of impingement. Joint space and articular surfaces are unremarkable. No focal bone lesions of concern.. Soft tissues: Normal. IMPRESSION: 1. Subacromial spurring which could be a source of impingement. An MRI follow-up is suggested to evaluate the rotator cuff. 2. No acute findings. Dictated and Authenticated by: Miller Correa MD. Ordering:KADEN Bowling MD
== END 2022-06-05 18:36 | disposition home or self-care (01) ==
PROVIDERS: Emergency Provider Emergency Medicine; PCP Nurse Practitioner Family
DX: M25.812 Other specified joint disorders, left shoulder (principal); R07.89 Other chest pain; R10.811 Right upper quadrant abdominal tenderness; R10.812 Left upper quadrant abdominal tenderness
CPT/HCPCS: 36415; 80053; 83690; 93005; 96374; 96375; 99284; 71046; 73030; 83735; 84484; 85025; 85379; 93010; 99285; J1885

== ENCOUNTER 2023-07-03 10:54 | Emergency (ER) | payer MEDICAID, SELFPAY ==
[2023-07-03 10:57] VITALS: BP 133/81; PULSE 76; RESP 18; TEMP 36.8; O2SAT 99
--- NOTE | 2023-07-03 11:15 | DI.RAD_ITS ---
Exam(s) XR KNEE LT 4V AP,LAT,JULIO,PAT EXAM: XR KNEE LT 4V AP,LAT,JULIO,PAT CLINICAL HISTORY: L knee pain s/p fall. TECHNIQUE: 2D digital imaging was performed. COMPARISON: No exams were available for comparison FINDINGS: 4 views. No evidence of fracture nor obvious joint effusion. Bone density normal. No osseous lesions. No de generative changes evident. IMPRESSION: No significant osseous findings in the left knee. DATA REPOSITORY: RADIATION DOSE DELIVERED:
--- NOTE | 2023-07-03 11:15 | DI.US_ITS ---
Exam(s) US LOWER EXTREMITY VENOUS LT EXAM: US LOWER EXTREMITY VENOUS LT CLINICAL HISTORY: pain to L knee, ? bakers cyst TECHNIQUE: Grayscale, color, and doppler imaging of the deep venous system of the left lower extremi ty was performed. COMPARISON: No exams were available for comparison FINDINGS: There is no evidence of intraluminal thrombus and there is normal compression and augmentation demons trated within the common femoral vein, femoral vein, and popliteal vein. In the ipsilateral calf the interrogated veins also exhibit normal compression/ augmentation properti es. The ipsilateral saphenofemoral junction is patent. IMPRESSION: 1. No evidence of DVT in the left lower extremity. DATA REPOSITORY:
--- NOTE | 2023-07-03 11:25 | ED.GENADUL_ITS ---
Discharge Plan Disposition Patient Disposition: Home Condition: Stable Discharge Details Clinical Impression: Dental abscess, Knee pain, left Primary Care Provider: Kamar Wilson ED Provider: Meghan Thakkar Home Meds and New Rx's Prescriptions: New clindamycin HCl 150 mg Capsule 450 mg PO Q8H 10 Days Qty: 90 0RF Continued acetaminophen 500 mg Tablet 1,000 mg PO PRN PRN ibuprofen 200 mg Capsule 800 mg PO PRN PRN pantoprazole [Protonix] 40 mg tablet,delayed release (DR/EC) 40 mg PO DAILY Qty: 60 0RF Discharge Instructions Instructions: Dental Abscess (ED), Knee Pain (ED) Additional Instructions: I encourage you to follow-up with your dentist for definitive management of your dental abscess as scheduled. I also recommend that you follow-up with your orthopedist for further evaluation of your knee pain. Please take the clindamycin for the full course as prescribed. I recommend taking this with a probiotic to help prevent antibiotic associated diarrhea. May use Tylenol or ibuprofen for discomfort, as well as ice and elevation of the leg above heart level. Return to emergency care if you develop new vision changes, eye pain, inability to open your mouth, difficulty swallowing, or if you are very worried and need to be rechecked again immediately Referrals: Kamar Wilson [Primary Care Provider] - [facility] General Date/Time Provider Initiated Documentation: 07/03/23 10:57 . [facility] Narrative: Lazara is a 42-year-old female who presents to the emergency department today for evaluation of left upper jaw dental abscess and left knee pain. She reports that she has had the dental pain for 1 week, says this is above a tooth that needs to be pulled. There is an area of swelling at the gumline, no drainage. She denies associated fever/chills, difficulty swallowing, difficulty opening her mouth, unusual headaches, eye pain/vision changes. She has a dental appointment next week for tooth extraction. She also would like to have her left knee checked out. She reports she has had pain for the last month, it feels like a pulling sensation in the medial aspect of her knee. It is worse with standing and with laying down. She says it feels like there is something behind the back of her knee. No distal numbness/tingling/swelling or unusual pedal edema. No history of blood clots, cancers, estrogen use. Related Data Home Medications Medication Instructions Recorded Confirmed acetaminophen 500 mg tablet 1,000 mg PO PRN PRN 08/29/21 07/03/23 ibuprofen 200 mg capsule 800 mg PO PRN PRN 08/29/21 07/03/23 pantoprazole 40 mg tablet,delayed 40 mg PO DAILY #60 tabs 04/12/22 07/03/23 release (Protonix) clindamycin HCl 150 mg capsule 450 mg (3 x 150 mg) PO Q8H 10 days 07/03/23 #90 caps Previous Rx's Medication Instructions Recorded pantoprazole 40 mg tablet,delayed 40 mg PO DAILY #60 tabs 04/12/22 release (Protonix) clindamycin HCl 150 mg capsule 450 mg (3 x 150 mg) PO Q8H 10 days 07/03/23 #90 caps Allergies Allergy/AdvReac Type Severity Reaction Status Date / Time amoxicillin Allergy Other (See Unverified 07/03/23 12:45 Comment) erythromycin base Allergy Other (See Unverified 07/03/23 12:45 Comment) Penicillins Allergy Hives Unverified 07/03/23 12:45 Sulfa (Sulfonamide Allergy Hives Unverified 07/03/23 12:45 Antibiotics) General Stated Complaint: Orthopedic CRISTIAN: 4 Review of Systems Narrative: see HPI Exam Const General: cooperative, healthy appearing, comfortable and no acute distress HENMT Head: normal to inspection Ears: hearing grossly normal bilaterally General nose exam: external nose normal Face and sinus: normal facial exam Mouth: oral mucosae normal, oropharynx normal and moist mucous membranes Teeth and gingiva: poor dentition and other (Dime size swelling superior to left upper premolars at gumline) Resp Effort & Inspection: normal respiratory effort and able to speak in complete sentences Extrem General: normal to inspection, no pedal edema, no calf tenderness and normal gait Left lower extremity: full ROM and knee (tenderness with palpation of popliteal fossa) Course Vital Signs Vital signs: Vital Signs Temperature 36.8 C 07/03/23 10:57 Pulse 76 07/03/23 10:57 Respiratory Rate 18 07/03/23 10:57 Blood Pressure 133/81 07/03/23 10:57 Pulse Oximetry 99 07/03/23 10:57 Temperature 36.8 C 07/03/23 10:57 Temperature Source Tympanic 07/03/23 10:57 Pulse 76 07/03/23 10:57 Respiratory Rate 18 07/03/23 10:57 Blood Pressure 133/81 07/03/23 10:57 Blood Pressure Position Sitting 07/03/23 10:57 Pulse Oximetry 99 07/03/23 10:57 Oxygen Delivery Method Room Air 07/03/23 10:57 Oxygen Flow Rate 0 07/03/23 10:57 Pain Level 4 07/03/23 10:57 Comment 4/10 for knee, 2/10 for teeth 07/03/23 10:57 Medical Decision Making Lazara is a 42-year-old female who presents to the emergency department today for evaluation of left upper jaw dental abscess and left knee pain. She reports that she has had the dental pain for 1 week, says this is above a tooth that needs to be pulled. There is an area of swelling at the gumline, no drainage. She denies associated fever/chills, difficulty swallowing, difficulty opening her mouth, unusual headaches, eye pain/vision changes. She has a dental appointment next week for tooth extraction. She also would like to have her left knee checked out. She reports she has had pain for the last month, it feels like a pulling sensation in the medial aspect of her knee. It is worse with standing and with laying down. She says it feels like there is something behind the back of her knee. She did fall a couple of weeks ago, says that it may have tweaked her knee but she had any pain prior to this injury. No distal numbness/tingling/swelling or unusual pedal edema. No history of blood clots, cancers, estrogen use. Physical exam reassuring. Small dime size area of swelling just superior to left upper premolars, no obvious fluctuance or drainage. Voice clear. No trismus. No tenderness to palpation of teeth. Dental damage/decay extensive throughout the mouth. No cervical or submandibular lymphadenopathy. Easy work of breathing, no respiratory distress. Mild tenderness palpation to popliteal fossa. Slightly decreased flexion to left knee. Sensation intact distally. No pedal edema or calf swelling/erythema/warmth. Normal gait. Able to bear weight without difficulty.\ DDx includes but is not limited to: Dental abscess, Salazar's cyst, of course yeah ligamentous injury, bony abnormality/fracture (low suspicion) Ultrasound of lower extremity reassuring, no DVT noted. Left knee x-ray unremarkable, no acute osseous finding or dislocation noted. Dr. Babb also in to see patient, abscess does not appear fluctuant for drainage. I will treat for dental abscess with clindamycin, as patient has an extensive h istory of penicillin allergy. Reviewed discharge instructions with patient, including importance of follow-up with orthopedics and dental for further evaluation/management. Reviewed symptomatic management and red flags indicate need for return to emergency care. She is agreeable with plan of care. Imaging Data Radiologic Study: Radiologist's impression: Exam(s) US LOWER EXTREMITY VENOUS LT EXAM: US LOWER EXTREMITY VENOUS LT CLINICAL HISTORY: pain to L knee, ? bakers cyst TECHNIQUE: Grayscale, color, and doppler imaging of the deep venous system of the left lower extremity was performed. COMPARISON: No exams were available for comparison FINDINGS: There is no evidence of intraluminal thrombus and there is normal compression and augmentation demonstrated within the common femoral vein, femoral vein, and popliteal vein. In the ipsilateral calf the interrogated veins also exhibit normal compression/ augmentation properties. The ipsilateral saphenofemoral junction is patent. IMPRESSION: 1. No evidence of DVT in the left lower extremity. Radiologic Study #2: Radiologist's impression: Exam(s) XR KNEE LT 4V AP,LAT,JULIO,PAT EXAM: XR KNEE LT 4V AP,LAT,JULIO,PAT CLINICAL HISTORY: L knee pain s/p fall. TECHNIQUE: 2D digital imaging was performed. COMPARISON: No exams were available for comparison FINDINGS: 4 views. No evidence of fracture nor obvious joint effusion. Bone density normal. No osseous lesions. No degenerative changes evident. IMPRESSION: No significant osseous findings in the left knee. Quality:SDOH Health Related Social Needs: No Data to Display [facility] All Active Problems (Updated 07/03/23 @ 12:55 by Meghan Sierra) Knee pain, left (Acute) Dental abscess (Acute) No-show for appointment (Acute) Medical History No significant past medical history Surgical History No significant past surgical history Social History Smoking/Tobacco Use Status: Never Smoking risk assessment performed?: Yes Alcohol Intake: never Drug use: Never Substance use type: does not use Housing: house Additional Social history: unable to assess privately. Appears to have good relationship with . NGUYEN,RN 07/03/23
[2023-07-03] MEDS: Clindamycin 150 MG CAP 450 MG PO (12:42)
[2023-07-03 13:05] VITALS: BP 145/95; PULSE 73; RESP 18; TEMP 36.8; O2SAT 98
== END 2023-07-03 13:08 | disposition home or self-care (01) ==
LOC: ER 13:11
PROVIDERS: Emergency Provider Nurse Practitioner Family; PCP Nurse Practitioner Family
DX: M25.562 Pain in left knee (principal); R68.84 Jaw pain; K04.7 Periapical abscess without sinus; W19.XXXA Unspecified fall, initial encounter
CPT/HCPCS: 99283; 73564; 93971

== ENCOUNTER 2023-08-20 15:23 | Emergency (ER) | payer MEDICAID, SELFPAY ==
[2023-08-20] VITALS (9 sets, daily range): BP systolic 106–145; BP diastolic 41–94; PULSE 62–95; RESP 16–23; TEMP 36.7–37.2; O2SAT 96–98
[2023-08-20] MEDS: Ibuprofen 600 MG TAB PO (16:30)
[2023-08-20] MEDS: Acetaminophen 500 MG TAB (16:30)
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
[2023-08-20] MEDS: Ibuprofen 600 MG TAB, 6 TABS/BTL PO (19:52)
== END 2023-08-20 19:51 | disposition home or self-care (01) ==
PROVIDERS: Emergency Provider Physician Assistant; PCP Nurse Practitioner Family
DX: S61.412A Laceration without foreign body of left hand, initial encounter (principal); M25.511 Pain in right shoulder; S20.213A Contusion of bilateral front wall of thorax, initial encounter; S40.012A Contusion of left shoulder, initial encounter; Y04.2XXA Assault by strike against or bumped into by another person, initial encounter
CPT/HCPCS: 99283